=== PATIENT | male | born 1965 | race Caucasian/White ===

== ENCOUNTER 2016-11-09 19:07 | Emergency (ER) | payer MEDICARE, OTHER ==
[2016-11-09] MEDS ORDERED: CYCLOBENZAPRINE 10 MG TAB ONE (21:17)
== END 2016-11-09 22:44 | disposition home or self-care (01) ==
LOC: FASTR 19:07
DX: M25.512 Pain in left shoulder (principal); S22.32XA Fracture of one rib, left side, initial encounter for closed fracture; S16.1XXA Strain of muscle, fascia and tendon at neck level, initial encounter; V49.20XA Unspecified car occupant injured in collision with unspecified motor vehicles in nontraffic accident, initial encounter; F17.210 Nicotine dependence, cigarettes, uncomplicated
CPT/HCPCS: 70450; 71111; 72050